=== PATIENT | male | born 1980 | race Caucasian/White ===

== ENCOUNTER 2017-01-12 13:00 | Emergency (ER) | payer OTHER ==
[2017-01-12 13:20] VITALS: BP 141/89
[2017-01-12] MEDS ORDERED: KETOROLAC TROMETHAMINE 60 MG/2 ML VIAL IM ONE ×2 (14:43→14:56)
[2017-01-12] MEDS ORDERED: LIDOCAINE HCL 20 ML UDC MM ONE (14:55)
--- NOTE | 2017-01-12 15:06 | ERNOTE ---
ENT HPI Date of Service: 01/12/17 Presenting Symptoms: dental pain Time Seen by Provider: 01/12/17 13:20 Source: patient - Immun/Allergies/Home Medications Immunizations: IMMUNIZATION HX Immunizations Up to Date Yes History of Influenza Vaccine No Allergies/Adverse Reactions: Allergies Allergy/AdvReac Type Severity Reaction Status Date / Time No Known Allergies Allergy Unverified 01/12/17 13:21 Home Medications: HOME MEDICATIONS Amox Tr/Potassium Clavulanate [Augmentin 875-125 Tablet] 1 each PO Q12H #14 tablet 01/12/17 [Last Taken Unknown] HYDROcodone/ACETAMINOPHEN [Hydrocodon-Acetaminophen 5-325] 1 each PO TID PRN # 20 tablet 01/12/17 [Last Taken Unknown] - History of Present Illness Narrative: presented to the emergency room with left lower jaw pain related to a cavity in between the back 2 molars. Patient states the pain started 2 days ago and he has been unable to get into a dentist office until Sunday. Patient does have a lower swollen jaw. No loose teeth were appriciated Date (Duration): 01/12/17 Severity: Present: mild ENT Location: Present: dental Prearrival Treatment: Present: no prearrival treatment Modifying Factors - Improves: Reports: medication, rest Modifying Factors - Worsens: Reports: nothing Associated Symptoms - ENT: Reports: poor fluid intake, facial pain/swelling, tooth pain, jaw swelling. Denies: fever, malaise, poor solid intake, voice change, sore throat, nasal congestion/drainage Review of Systems - Review of Systems Constitutional: Present: no symptoms reported EYE: Present: no symptoms reported ENT: Present: See HPI Respiratory: Present: no symptoms reported. Absent: shortness of breath Cardiology: Present: no symptoms reported. Absent: chest pain Gastrointestinal/Abdominal: Present: no symptoms reported Genitourinary: Present: no symptoms reported Musculoskeletal: Present: no symptoms reported Skin: Present: no symptoms reported Neurological: Present: no symptoms reported Endocrine: Present: no symptoms reported Hematologic/Lymphatic: Present: no symptoms reported Psych: Present: no symptoms reported - Patient's Past Medical History Patient History - Medical: No pertinent hx Patient History - Cardiac/Respiratory: No pertinent hx Patient History - Cancer: No Hx of Cancer Patient History - Surgical Procedures: ENT Patient History - Other: None - Social History Living Situations: home Psych History: No pertinent hx Smoking Status: Current every day smoker Alcohol Use: none Drug Use: none - Immunizations Immunizations Up to Date: Yes History of Influenza Vaccine: No Physical Exam - Physical Exam Narrative: dental carries observed on the left 2 back molars. area tender, but no loose teeth felt. General Appearance: Present: wd/wn, alert, no apparent distress Eye Exam: Normal inspection: bilateral Ears, Nose, Throat: Present: normal ENT inspection. Absent: sinus pain/drainage , pharyngeal erythema, pharyngeal swelling, tonsillar exudate, tonsillar swelling Neck: Present: normal inspection Respiratory: Present: no respiratory distress, lungs clear Cardiovascular/Chest: Present: regular rate, rhythm, no murmur Gastrointestinal/Abdominal: Present: normal bowel sounds Neurological Exam: Present: alert, oriented, normal mood/affect Skin Exam: Present: normal color Lymphatic Exam: Present: no adenopathy ED Progress - Vital Signs Patient's Vital Signs:: I have reviewed the patient's vital signs. Vital Signs: Vital Signs 01/12/17 13:16 Temperature 37.0 C Pulse Rate 84 Respiratory 16 Rate Blood Pressure 141/89 O2 Sat by Pulse 96 Oximetry - Progress/Reassessment Chief Complaint: Dental Problem Progress:: Improved Plan - Plan Plan: patient is to follow up with dentist on sunday at 10am. Departure Clinical Impression: Dental abscess - Departure Disposition: Home Follow Up Needed Condition: Stable Instructions: Dental Caries, Dental Abscess, [id number], Preventive Dental Care, Adult Additional Instructions: Continue any previous home medications. Take antibiotics as directed. May take [id number] pain medicine. Continue to encourage fluids. Follow-up with dental appointment on Sunday at 11:30 AM. Return to the emergency room if symptoms persist or become unmanageable with pain medications. Prescriptions: Amox Tr/Potassium Clavulanate [Augmentin 875-125 Tablet] 1 each PO Q12H #14 tablet HYDROcodone/ACETAMINOPHEN [Hydrocodon-Acetaminophen 5-325] 1 each PO TID PRN # 20 tablet PRN Reason: Pain
[2017-01-12] MEDS ORDERED: TETRACAINE HCL 150 DROP BTL ONE (16:16)
== END 2017-01-12 15:12 | disposition home or self-care (01) ==
LOC: ER 13:00
DX: K04.7 Periapical abscess without sinus (principal); F17.210 Nicotine dependence, cigarettes, uncomplicated